=== PATIENT | female | born 1950 | race American Indian/Alaskan Native ===

== ENCOUNTER 2017-12-30 16:42 | Inpatient (IN) | payer MEDICARE ==
[~2017-12-30 16:42] MED LIST: VANCOMYCIN 750 MG in NACL 0.9% 250ML 250 ML IV SCH
[2017-12-30 17:58] LABS: BUN/Creatinine Ratio 17; Blood Urea Nitrogen 15 mg/dL (7-17); Calcium 10.1 mg/dL (8.4-10.2); Hemolysis Index 2
[2017-12-30 18:23] LABS: Hematocrit 43.4 % (30.3-42.9); Hemoglobin 14.5 gm/dl (10.1-14.3); Mean Corpuscular HGB Conc 33 % (30-34); Mean Corpuscular Hemoglobin 31 pg (28-32); Mean Corpuscular Volume 92 fl (79-97); Platelet Count 313 K/mm3 (140-440); Red Blood Count 4.75 M/mm3 (3.65-5.03); Red Cell Distribution Width 13.4 % (13.2-15.2)
--- NOTE | 2017-12-30 19:03 | Emergency Department Report ---
ED Eye Problem HPI - General Chief complaint: Eye Problems Stated complaint: DOCTOR REFERRAL/EVALUATE FOR ORBITAL CELLULITIS Time Seen by Provider: 12/30/17 19:03 Source: patient Mode of arrival: Ambulatory Limitations: No Limitations - History of Present Illness Initial comments: Patient says she had left eye cataract removed last week. She started having left eye swelling and redness 2 days ago. Patient saw her chicken and fish butcher this afternoon to go to the emergency room to be evaluated for left orbital cellulitis. chief complaint: eye pain, eye redness -: Gradual, days(s) (2) Onset Description: gradual Location: left eye Place: home If Injury: other (Left eye cataract surgery last week.) Eye Symptoms: redness, pain, discharge, decreased vision, photophobia Severity: severe Severity scale (0 -10): 8 If Pain, Quality: sharp, burning Consistency: constant Context: recent eye procedure Associated Symptoms: none Treatments Prior to Arrival: none - Related Data Allergies Allergy/AdvReac Type Severity Reaction Status Date / Time No Known Allergies Allergy Unverified 09/14/15 13:41 ED Review of Systems ROS: Stated complaint: DOCTOR REFERRAL/EVALUATE FOR ORBITAL CELLULITIS Other details as noted in HPI Comment: All other systems reviewed and negative Constitutional: denies: chills, fever Eyes: eye pain, eye discharge, vision change ENT: denies: ear pain, dental pain, hearing loss Respiratory: denies: cough, shortness of breath Cardiovascular: denies: chest pain, palpitations Endocrine: no symptoms reported Gastrointestinal: denies: abdominal pain, nausea, vomiting, diarrhea Genitourinary: denies: urgency, dysuria, frequency Musculoskeletal: denies: back pain, joint swelling, arthralgia Skin: denies: rash, change in color Neurological: denies: headache, weakness, numbness, paresthesias Psychiatric: denies: anxiety, depression Hematological/Lymphatic: denies: easy bleeding, easy bruising ED Past Medical Hx - Past Medical History Hx Hypertension: Yes Hx Diabetes: Yes - Surgical History Hx Open Heart Surgery: Yes (1998) - Social History Smoking Status: Never Smoker Substance Use Type: None ED Physical Exam - General Limitations: No Limitations General appearance: alert, in no apparent distress - Head Head exam: Present: atraumatic, normocephalic, normal inspection - Eye Eye exam: Present: conjunctival injection, periorbital swelling, periorbital tenderness, other (Chemosis of the left eye.) Pupils: Present: unequal - ENT ENT exam: Present: normal exam, normal orophraynx, mucous membranes moist - Neck Neck exam: Present: normal inspection, full ROM. Absent: tenderness - Respiratory Respiratory exam: Present: normal lung sounds bilaterally. Absent: respiratory distress, wheezes, rhonchi - Cardiovascular Cardiovascular Exam: Present: regular rate, normal rhythm, normal heart sounds - GI/Abdominal GI/Abdominal exam: Present: soft, normal bowel sounds. Absent: distended, tenderness, guarding, rebound - Extremities Exam Extremities exam: Present: normal inspection, full ROM, normal capillary refill - Back Exam Back exam: Present: normal inspection, full ROM - Neurological Exam Neurological exam: Present: alert, oriented X3, CN II-XII intact - Psychiatric Psychiatric exam: Present: normal affect, normal mood - Skin Skin exam: Present: warm, dry, intact, normal color. Absent: rash ED Course Vital Signs 12/30/17 12/30/17 12/30/17 17:07 19:40 19:50 Temperature 97.8 F 98.1 F Pulse Rate 95 H 86 Respiratory 18 16 16 Rate Blood Pressure 150/77 Blood Pressure 133/72 [Left] O2 Sat by Pulse 98 100 Oximetry 12/30/17 12/30/17 20:20 21:11 Temperature Pulse Rate Respiratory 16 16 Rate Blood Pressure Blood Pressure [Left] O2 Sat by Pulse 98 Oximetry - Reevaluation(s) Reevaluation #1: 12/30/17 22:24 Patient care was discussed with the hospitalist transportation planning technician Dr Deluca. He will admit patient to the hospital for further evaluation and management. ED Medical Decision Making - Lab Data Result diagrams: 12/30/17 17:23 12/30/17 17:23 - Radiology Data Radiology results: report reviewed, image reviewed - Medical Decision Making Left Orbital Cellulitis. Critical care attestation.: If time is entered above; I have spent that time in minutes in the direct care of this critically ill patient, excluding procedure time. ED Disposition Clinical Impression: Orbital cellulitis, left Disposition: DC-09 OP ADMIT IP TO THIS HOSP Is pt being admited?: Yes Does the pt Need Aspirin: No Condition: Stable
[2017-12-30] MEDS ORDERED: MORPHINE IV ONE (19:32)
[2017-12-30] MEDS ORDERED: NACL 0.9% 1000 ML 1,000 ML IV ONE ×2 (19:33)
[2017-12-30] MEDS ORDERED: ZOFRAN IV ONE (19:33)
[2017-12-30 19:56] LABS: Alanine Aminotransferase 13 units/L (7-56); Albumin 4.2 g/dL (3.9-5)
[2017-12-30 19:58] LABS: Bilirubin,Direct < 0.2 mg/dL (0-0.2)
[2017-12-30 19:58] LABS: INR 0.93 (0.87-1.13)
[2017-12-30 19:59] LABS: Partial Thromboplastin Time 33.2 Sec. (24.2-36.6)
[2017-12-30] MEDS ORDERED: UNASYN/NS 3 GM/100 ML 3 GM/100 ML BAG IV SCH (20:00)
[2017-12-30] MEDS ORDERED: VANCOMYCIN/NS 1 GM/250 ML 1 GM/250 ML BAG IV SCH (20:00)
[2017-12-30] MEDS ORDERED: VANCOMYCIN PHARMACY TO DOSE IV SCH (20:00)
--- NOTE | 2017-12-30 21:49 | Cat Scan Report ---
FINAL REPORT PROCEDURE: CT ORBIT/EAR/FOSSA W CON TECHNIQUE: Computerized axial tomography of the orbits was performed following the IV injection of iodinated nonionic contrast. HISTORY: Left eye cellulitis COMPARISON: No prior studies are available for comparison. FINDINGS: There is diffuse thickening of the bowie of left eyeball associated with mild degree adjacent fat induration. It is involving both the anterior and posterior portions of the eyeball. Left lens is not visualized. The choroidal air appears to be slightly displaced internally especially in the anterior portion of the globe. Optic nerve and extraocular muscles are unremarkable. Right eyeball and right retrobulbar structures are within normal limits. A focal fluid collection is not identified. Bilateral lacrimal glands demonstrate normal enhancement. Bilateral paranasal sinuses are clear. IMPRESSION: Findings are most consistent with diffuse left scleritis involving anterior and posterior portions. Left lens is not visualized most likely secondary to prior surgery.
[2017-12-30] MEDS ORDERED: UNASYN/NS 3 GM/100 ML 3 GM/100 ML BAG IV ONE (22:00)
[2017-12-30] MEDS: VANCOMYCIN 750 MG in NACL 0.9% 250ML 250 ML IV SCH (22:20)
[2017-12-30] MEDS ORDERED: ZOFRAN IV PRN (22:39)
[2017-12-30] MEDS ORDERED: TYLENOL PO PRN (22:40)
[2017-12-30] MEDS ORDERED: D50W (25GM) Syringe IV PRN (22:42)
[2017-12-30] MEDS ORDERED: K-DUR PO ONE (22:45)
[2017-12-30] MEDS ORDERED: TYLENOL ONE (23:07)
[2017-12-31] MEDS: KCL 10MEQ/100ML 10 MEQ/100 ML BAG IV SCH ×2 (00:33→01:25)
[2017-12-31] MEDS: MORPHINE IV PRN ×3 (06:00→19:45)
[2017-12-31] MEDS: UNASYN/NS 3 GM/100 ML 3 GM/100 ML BAG IV SCH ×2 (06:05→12:04)
--- NOTE | 2017-12-31 06:46 | History and Physical Report ---
CHIEF COMPLAINT: Pain and swelling in the left eye. HISTORY OF PRESENT ILLNESS: The patient is a 67-year-old female who had cataract surgery done to the left eye in early 11/2017 and then started having pain and swelling in the left eye about 2 days ago with some redness. The patient saw her manager leasing that did the surgery, who is attached with the [facility] and the manager leasing told her that she needs to go to the Emergency Room to be evaluated for orbital cellulitis. There is no history of fever, no history of chills. The patient said that in the morning of yesterday before she saw the manager leasing, the left eye was sticking together. There is no history of nausea or vomiting. The patient described the pain in the eye as sharp and burning and then presented to the Emergency Room. PAST MEDICAL HISTORY: Pertinent for hypertension and diabetes mellitus. Also, the patient has past history of coronary artery disease. PAST SURGICAL HISTORY: Significant for open heart surgery in 1998 and recent cataract surgery in the left. FAMILY HISTORY: Noncontributory. SOCIAL HISTORY: The patient does not smoke, does not drink alcohol and does not use illicit drugs. MEDICATIONS: The patient's home medications are not known. ALLERGIES: There are no known drug allergies. REVIEW OF SYSTEMS: CONSTITUTIONAL: There is no fever, no chills and no diaphoresis. ENT: No headache. ____ pain, swelling and redness in the left eye. CARDIOVASCULAR: There is no chest pain or orthopnea. RESPIRATORY: There is no shortness of breath or cough. GASTROINTESTINAL: There is no nausea, no vomiting, no abdominal pain, diarrhea or constipation. NEUROLOGICAL: There is no numbness, no dizziness, no altered mental status. MUSCULOSKELETAL: There is no joint pain or swelling. DERMATOLOGIC: There is no skin rash or itching. GENITOURINARY: There is no dysuria, hematuria or flank pain. Rest of system review is normal. PHYSICAL EXAMINATION: GENERAL: At this time of exam, the patient was found to be alert and oriented x 3 and in mild distress due to pain in the left eye. VITAL SIGNS: Show temperature of 98 degrees Fahrenheit, pulse of 86, respirations 16, blood pressure 144/70 and O2 sat of 96% on room air. HEENT: Showed left eye to be swollen and red. ____. NECK: Supple with no JVD or carotid bruit. CARDIOVASCULAR: Showed normal first and second heart sounds with no gallops or murmurs. RESPIRATORY: Showed good air entry on both sides of the lungs with no abnormal breath sounds. GASTROINTESTINAL: Show abdomen to be full, soft and nontender with no organomegaly or rigidity. NEUROLOGIC: Shows no focal deficits. MUSCULOSKELETAL: Show no joint swelling or tenderness. DERMATOLOGICAL: Show no skin rash. GENITOURINARY: Showing no costovertebral angle tenderness. PERTINENT LABORATORY AND IMAGING STUDIES: The patient has CBC done with normal white count, high hemoglobin of 10.5 and high hematocrit of 43.4, which was normal. The patient's coagulation studies were ____. Chemistry showed low potassium level of 3.0, normal sodium with low chloride of 91.9. The patient's renal function test was unremarkable. Lactic acid level was high with a value of 6.2. Rest of chemistry was unremarkable. IMAGING STUDIES: The patient had CT of the orbits done, which shows findings that are most consistent with diffuse left scleritis involving the anterior and posterior portions. Also, the radiologist said that the left lens is not visualized and that is most likely secondary to prior surgery. DIAGNOSES: 1. Left orbital cellulitis. 2. Hypokalemia. PLAN: The patient will be admitted to medical floor and will continue IV antibiotics,the patient will be on IV Unasyn 3 g q. 6 hours, having had the first dose in the Emergency Room. Also, the patient will continue IV vancomycin started in the Emergency Room with pharmacy to adjust the dose. The patient will be on IV morphine 2 mg every 3 hours as needed for pain and IV Zofran 4 mg every 6 hours for nausea and vomiting and have one-time dose of potassium chloride 40 mEq by mouth. The patient will be on Tylenol 650 mg by mouth every 4 hours for fever and headache and DVT prophylaxis with heparin 5000 units subcutaneous q. 12 hours. The patient will also be on IV Zofran 4 mg every 6 hours for nausea and vomiting and will be on Accu-Chek a.c. and at bedtime, followed by low-dose sliding scale using regular insulin. The patient's home medications will be reconciled and applied when they are known. The patient's diet will be consistent with carbohydrate 2 g sodium diet. JOB# [id number] O[facility]/SHABBIR ZUNIGA
[2017-12-31] MEDS: VANCOMYCIN 750 MG in NACL 0.9% 250ML 250 ML IV SCH ×2 (08:06→22:43)
[2017-12-31] MEDS: HumuLIN R SUB-Q SCH ×4 (08:28→22:59)
[2017-12-31 08:34] LABS: BUN/Creatinine Ratio 15; Blood Urea Nitrogen 9 mg/dL (7-17); Calcium 8.9 mg/dL (8.4-10.2); Hemolysis Index 12
[2017-12-31] MEDS: HEPARIN SUB-Q SCH ×2 (09:16→22:50)
--- NOTE | 2017-12-31 12:59 | Progress Note ---
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 She had surgery on December [address] Jimenez Hutchinson. She was seen by him yesterday and referred for further management. Vision no history of diabetes mellitus, hypertension, history of cataract surgery. orbital cellulitis - CT of the face was done; showed diffuse left scleritis involving anterior and posterior portions, left lens is not visualized most likely secondary to prior surgery - Patient is on IV vancomycin and Unasyn - ID and ophthalmology consulted, I have called Dr. Jacobs's office and talk with his prosthetics assistant and said he will get back to me Lactic acidosis - Patient was given IV fluids and resolved Diabetes mellitus, well controlled - ADA diet, SSI Hypertension - BP is well controlled DVT prophylaxis - Heparin Disposition - Continue inpatient care History Interval history: Patient was seen and evaluated this morning, patient was complaining severe pain on the left eye. Hospitalist Physical - Physical exam Narrative exam: Not in cardiopulmonary distress. The patient appeared well nourished and normally developed. Discharge from the left eye, left eye swollen, difficult to open, inflamed. Vital signs as documented. Head exam is unremarkable. No scleral icterus . Neck is without jugular venous distension, thyromegaly, or carotid bruits. Lungs are clear to auscultation. Cardiac exam reveals regular rate and Rhythm. First and second heart sounds normal. No murmurs, rubs or gallops. Abdominal exam reveals normal bowel sounds, no masses, no organomegaly and no aortic enlargement. Extremities are nonedematous and both femoral and pedal pulses are normal. 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 No focal weakness. - Constitutional Vitals: Temp Pulse Resp BP Pulse Ox 99.1 F 76 16 142/75 94 12/31/17 07:31 12/31/17 10:00 12/31/17 10:00 12/31/17 07:31 12/31/17 10:00 Results - Labs CBC & Chem 7: 12/30/17 17:23 12/31/17 07:22 Labs: Laboratory Last Values WBC 8.1 K/mm3 (4.5-11.0) 12/30/17 17:23 RBC 4.75 M/mm3 (3.65-5.03) 12/30/17 17:23 Hgb 14.5 gm/dl (10.1-14.3) H 12/30/17 17:23 Hct 43.4 % (30.3-42.9) H 12/30/17 17:23 MCV 92 fl (79-97) 12/30/17 17:23 MCH 31 pg (28-32) 12/30/17 17:23 MCHC 33 % (30-34) 12/30/17 17:23 RDW 13.4 % (13.2-15.2) 12/30/17 17:23 Plt Count 313 K/mm3 (140-440) 12/30/17 17:23 PT 12.9 Sec. (12.2-14.9) 12/30/17 19:23 INR 0.93 (0.87-1.13) 12/30/17 19:23 APTT 33.2 Sec. (24.2-36.6) 12/30/17 19:23 Sodium 143 mmol/L (137-145) 12/31/17 07:22 Potassium 4.0 mmol/L (3.6-5.0) D 12/31/17 07:22 Chloride 101.9 mmol/L (98-107) 12/31/17 07:22 Carbon Dioxide 27 mmol/L (22-30) 12/31/17 07:22 Anion Gap 18 mmol/L 12/31/17 07:22 BUN 9 mg/dL (7-17) 12/31/17 07:22 Creatinine 0.6 mg/dL (0.7-1.2) L 12/31/17 07:22 Estimated GFR > 60 ml/min 12/31/17 07:22 BUN/Creatinine Ratio 15 % 12/31/17 07:22 Glucose 113 mg/dL (65-100) H 12/31/17 07:22 POC Glucose 147 (70-105) H 12/31/17 11:22 Lactic Acid 1.40 mmol/L (0.7-2.0) 12/31/17 10:01 Calcium 8.9 mg/dL (8.4-10.2) 12/31/17 07:22 Total Bilirubin 0.80 mg/dL (0.1-1.2) 12/30/17 19:08 Direct Bilirubin < 0.2 mg/dL (0-0.2) 12/30/17 19:08 Indirect Bilirubin 0.6 mg/dL 12/30/17 19:08 AST 19 units/L (5-40) 12/30/17 19:08 ALT 13 units/L (7-56) 12/30/17 19:08 Alkaline Phosphatase 123 units/L (35-129) 12/30/17 19:08 Total Protein 9.9 g/dL (6.3-8.2) H 12/30/17 19:08 Albumin 4.2 g/dL (3.9-5) 12/30/17 19:08 Albumin/Globulin Ratio 0.7 % 12/30/17 19:08
--- NOTE | 2017-12-31 13:56 | Consultation ---
History of Present Illness - Reason for Consult Consult date: 12/31/17 orbital cellulitis Requesting physician: BALJIT FLORENCE - History of Present Illness 67 y/o female with history of cataracts, HTN, DM; admitted on 12/30/17 sent from her title abstractor office after she presented for erythema, pain and swelling on the left eye. She had left eye cataract surgery on December [id number] by Dr. Jimenez Hutchinson. Denies fever, chills, eye injury. Denies itching, or visual changes. Glucose at home in the 130s. In the ED, temp 97.8, HR 95, R 18, BP 150/77. WBC 8.1. Hg 14.5. Plat 313. Lactate 6.2. Creat 0.9. CT orbit showed diffuse left scleritis involving anterior and posterior portions of the left eye. No abscess seen. Micro: Blood cx 12/30 ngtd Abx: IV vancomycin and Unasyn Past History Past Medical History: other (cataracts) Past Surgical History: No surgical history Social history: no significant social history Medications and Allergies Allergies Allergy/AdvReac Type Severity Reaction Status Date / Time No Known Allergies Allergy Unverified 09/14/15 13:41 Home Medications Medication Instructions Recorded Confirmed Last Taken Type Amlodipine Besylate [Norvasc] 5 mg PO DAILY 12/31/17 12/31/17 Unknown History Aspirin [Aspirin EC] 81 mg PO DAILY 12/31/17 12/31/17 Unknown History Atorvastatin Calcium [Lipitor] 20 mg PO HS 12/31/17 12/31/17 Unknown History Losartan [Cozaar] 25 mg PO QDAY 12/31/17 12/31/17 Unknown History Omeprazole 20 mg PO DAILY 12/31/17 12/31/17 Unknown History metFORMIN [Glucophage] 850 mg PO BID 12/31/17 12/31/17 Unknown History Active Meds: Active Medications Acetaminophen (Tylenol) 650 mg PO Q4H PRN PRN Reason: For Pain/Fever/Headache Last Admin: 12/30/17 23:15 Dose: 650 mg Dextrose (D50w (25gm) Syringe) 50 ml IV PRN PRN PRN Reason: Hypoglycemia Heparin Sodium (Porcine) (Heparin) 5,000 unit SUB-Q Q12HR PAUL Last Admin: 12/31/17 09:16 Dose: 5,000 unit Vancomycin HCl 750 mg/ Sodium (Chloride) 257.5 mls @ 166.667 mls/hr IV Q12H PAUL Last Admin: 12/31/17 08:06 Dose: 166.667 mls/hr Ampicillin Sodium/Sulbactam Sodium (Unasyn/Ns 3 Gm/100 Ml) 3 gm in 100 mls @ 200 mls/hr IV Q6HR PAUL; Protocol Last Admin: 12/31/17 12:04 Dose: 200 mls/hr Insulin Human Regular (Humulin R) 0 units SUB-Q AC PAUL; Protocol Last Admin: 12/31/17 11:31 Dose: Not Given Insulin Human Regular (Humulin R) 0 units SUB-Q QHS PAUL; Protocol Methylprednisolone Sodium Succinate (Solu-Medrol) 40 mg IV Q12HR PAUL Morphine Sulfate (Morphine) 2 mg IV Q3H PRN PRN Reason: Pain, Moderate (4-6) Last Admin: 12/31/17 10:35 Dose: 2 mg Ondansetron HCl (Zofran) 4 mg IV Q6H PRN PRN Reason: Nausea And Vomiting Prednisolone Acetate (Pred Forte 1%) 1 drops OU QID PAUL Vancomycin HCl (Vancomycin Pharmacy To Dose) 1 each IV PKCONSULT PAUL Review of Systems All systems: negative (as per HPI) Physical Examination - Physical Exam Narrative exam: Alert in NAD [place] AT JANELL, left sclerae injected with corneal edema and overall left eye edema , clear secretion Neck no JVD no LN Lungs CTA tyra CV rrr Abd soft NT Ext no edema Skin no rash - Constitutional Vitals: Vital Signs Temp Pulse Resp BP Pulse Ox 99.1 F 76 16 142/75 94 12/31/17 07:31 12/31/17 10:00 12/31/17 10:00 12/31/17 07:31 12/31/17 10:00 Temperature -Last 24 Hours Temperature 99.1 F Temperature 97.8 F Temperature 98 F Temperature 98.1 F Temperature 97.8 F Results - Labs CBC & Chem 7: 12/30/17 17:23 12/31/17 07:22 Labs: Abnormal lab results 12/30/17 12/30/17 12/30/17 Range/Units 17:23 17:23 17:23 Hgb 14.5 H (10.1-14.3) gm/dl Hct 43.4 H (30.3-42.9) % Potassium 3.0 L (3.6-5.0) mmol/L Chloride 91.9 L (98-107) mmol/L Creatinine (0.7-1.2) mg/dL Glucose 173 H (65-100) mg/dL POC Glucose (70-105) Lactic Acid 6.10 H* (0.7-2.0) mmol/L Total Protein (6.3-8.2) g/dL 12/30/17 12/30/17 12/30/17 Range/Units 18:44 19:08 23:56 Hgb (10.1-14.3) gm/dl Hct (30.3-42.9) % Potassium (3.6-5.0) mmol/L Chloride (98-107) mmol/L Creatinine (0.7-1.2) mg/dL Glucose (65-100) mg/dL POC Glucose (70-105) Lactic Acid 6.20 H* 3.80 H* (0.7-2.0) mmol/L Total Protein 9.9 H (6.3-8.2) g/dL 12/31/17 12/31/17 Range/Units 07:22 11:22 Hgb (10.1-14.3) gm/dl Hct (30.3-42.9) % Potassium (3.6-5.0) mmol/L Chloride (98-107) mmol/L Creatinine 0.6 L (0.7-1.2) mg/dL Glucose 113 H (65-100) mg/dL POC Glucose 147 H (70-105) Lactic Acid (0.7-2.0) mmol/L Total Protein (6.3-8.2) g/dL Assessment and Plan Assessment: 1) Presumed Left orbital cellulitis? after cataract surgery involving ?the fat and ocular muscles. Likely due to Staph vs Strep, less likely Pseudomonas / fungi -left eye cataract surgery on December 09, [address] Jimenez Hutchinson[address] -CT orbit showed diffuse left scleritis involving anterior and posterior portions of the left eye. No abscess seen. 2) DM: controlled Plan: -Ophthal needs to review CT -continue IV vancomycin -stop unasyn -add cefepime I am rounding on 01/02 Summer Mcfarland MD
[2017-12-31] MEDS ORDERED: PRED FORTE 1% OU SCH (14:00)
[2017-12-31] MEDS ORDERED: PRED FORTE 1% OS SCH (14:39)
[2017-12-31] MEDS: MAXIPIME 2 GM in NACL 0.9% 20 ML IV SCH ×2 (15:16→22:51)
[2017-12-31] MEDS: PRED FORTE 1% OS SCH ×2 (17:59→22:51)
[2017-12-31] MEDS ORDERED: HumuLIN R SUB-Q SCH (22:00)
[2018-01-01] MEDS: MAXIPIME 2 GM in NACL 0.9% 20 ML IV SCH (07:24)
[2018-01-01 07:25] LABS: Basophils % (Auto) 0.3 % (0.0-1.8); Hematocrit 37.9 % (30.3-42.9); Hemoglobin 12.8 gm/dl (10.1-14.3); Lymphocytes # (Auto) 0.7 K/mm3 (1.2-5.4); Lymphocytes % (Auto) 14.4 % (13.4-35.0); Mean Corpuscular HGB Conc 34 % (30-34); Mean Corpuscular Hemoglobin 31 pg (28-32); Mean Corpuscular Volume 91 fl (79-97); Monocytes # (Auto) 0.2 K/mm3 (0.0-0.8); Monocytes % (Auto) 4.3 % (0.0-7.3); Platelet Count 227 K/mm3 (140-440); Red Blood Count 4.17 M/mm3 (3.65-5.03); Red Cell Distribution Width 13.6 % (13.2-15.2)
[2018-01-01] MEDS: HumuLIN R SUB-Q SCH (07:29)
[2018-01-01 07:52] LABS: BUN/Creatinine Ratio 22; Blood Urea Nitrogen 13 mg/dL (7-17); Calcium 9.4 mg/dL (8.4-10.2); Hemolysis Index 2
[2018-01-01] MEDS: VANCOMYCIN 750 MG in NACL 0.9% 250ML 250 ML IV SCH (07:59)
[2018-01-01 08:22] VITALS: BP 149/61
[2018-01-01] MEDS: HEPARIN SUB-Q SCH (09:32)
[2018-01-01] MEDS: PRED FORTE 1% OS SCH (09:33)
--- NOTE | 2018-01-01 10:57 | Discharge Summary ---
Providers - Providers Date of Admission: 12/30/17 22:17 Attending physician: BALJIT FLORENCE MD 12/31/17 08:31 Consult to Physician [CONS] Routine Comment: spoke with dr. 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 Left lens is not visualized most likely secondary to prior surgery. Hospital course: 67 year old -[place] female was sent from kosher inspector office after she presented for pain and swelling on the left eye. She had surgery on December [address] Linda Rogers. She was seen by him yesterday and referred for further management. Patient has history of diabetes mellitus, hypertension, history of cataract surgery. orbital cellulitis - CT of the face was done; showed diffuse left scleritis involving anterior and posterior portions, left lens is not visualized most likely secondary to prior surgery - Patient was treated IV vancomycin, Unasyn, topical and systemic steroids - ID and ophthalmology consulted, I have called Dr. Jacobs and he came and evaluated the patient agreed with the mangement plan - patient showed marked improvement Lactic acidosis - resolved with IV fluids Diabetes mellitus, well controlled - ADA diet, SSI Hypertension - BP is well controlled patient's left eye swelling subsided. Patient discharged with PO antibiotic, topical and systemic steroids. Patient was hemodynamically stable. Patient will see Dr Jacobs next day. I have also discussed with the patient to see casting repairer for scleritis. we don't have casting repairer [facility]. Disposition: DC-01 TO HOME OR SELFCARE Time spent for discharge: 31 minutes - Discharge Diagnoses (1) Orbital cellulitis, left Status: Acute Core Measure Documentation - Palliative Care Palliative Care/ Comfort Measures: Not Applicable - Core Measures Any of the following diagnoses?: none Exam - Physical Exam Narrative exam: Not in cardiopulmonary distress. The patient appeared well nourished and normally developed. No left eye discharge, patient can open her eye, swelling improved markedly. Vital signs as documented. Head exam is unremarkable. No scleral icterus . Neck is without jugular venous distension, thyromegaly, or carotid bruits. Lungs are clear to auscultation. Cardiac exam reveals regular rate and Rhythm. First and second heart sounds normal. No murmurs, rubs or gallops. Abdominal exam reveals normal bowel sounds, no masses, no organomegaly and no aortic enlargement. Extremities are nonedematous and both femoral and pedal pulses are normal. 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 No focal weakness. - Constitutional Vitals: Temp Pulse Resp BP Pulse Ox 98.6 F 55 L 16 149/61 93 01/01/18 07:18 01/01/18 07:18 01/01/18 07:18 01/01/18 07:18 01/01/18 07:18 Plan Activity: no restrictions Weight Bearing Status: Full Weight Bearing Diet: diabetic Additional Instructions: follow at [facility] [address] in 1-2 weeks Follow up with: PRIMARY CARE, [Primary Care Provider] - 3-5 Days LINDA ROGERS MD [Staff Physician] - 48 Hours Prescriptions: Clindamycin [Clindamycin CAP] 600 mg PO TID #42 capsule prednisoLONE ACETATE 1% [Pred Forte 1%] 1 drops OS QID #2 bottle Prednisone [predniSONE 10 mg (6-Day Pack, 21 Tabs)] 10 mg PO .TAPER #1 tab.[id number]
== END 2018-01-01 12:02 | disposition home or self-care (01) | DRG 121 ==
LOC: ED 16:42 → 2B-ACE 22:17
PROVIDERS: ADMIT Internal Medicine; ATTEND Internal Medicine
DX: H05.012 Cellulitis of left orbit (principal); E87.2 Acidosis; E11.9 Type 2 diabetes mellitus without complications; H15.092 Other scleritis, left eye; I10 Essential (primary) hypertension; I25.10 Atherosclerotic heart disease of native coronary artery without angina pectoris; E87.6 Hypokalemia; Z98.42 Cataract extraction status, left eye; Z95.1 Presence of aortocoronary bypass graft; Z79.82 Long term (current) use of aspirin; Z79.899 Other long term (current) drug therapy
CPT/HCPCS: 36415; 70481; 80048; 80074; 82140; 82962; 85025; 85027; 85610; 85730; 86021; 87040; 96374; 96375; 99285; J0295; J0692; J1644; J1815; J2270; J2405; J2920; J3370; J3480; J7030; J7050; Q9967

== ENCOUNTER 2022-03-27 10:16 | Emergency (ER) | payer MEDICARE ==
[2022-03-27] MEDS ORDERED: ONDANSETRON 4 MG/2 ML INJ IV ONE (11:41)
[2022-03-27] MEDS ORDERED: SODIUM CHLORIDE 0.9% 1000 ML 1,000 ML IV ONE (11:41)
--- NOTE | 2022-03-27 12:08 | Emergency Department Report ---
ED N/V/D HPI - General Chief complaint: Nausea/Vomiting/Diarrhea Stated complaint: NASEA VOMITING Time Seen by Provider: 03/27/22 11:39 Source: patient, EMS Mode of arrival: Stretcher Limitations: No Limitations - History of Present Illness Initial comments: Patient is a 71-year-old female presenting to ED with complaint of nausea vomiting beginning this morning. States she has been unable to keep anything down since this morning. She denies any abdominal pain, chest pain or shortness of breath. No fever or chills. - Related Data Home Medications Medication Instructions Recorded Confirmed Last Taken Amlodipine Besylate [Norvasc] 5 mg PO DAILY 12/31/17 08/19/21 Unknown Aspirin [Aspirin EC] 81 mg PO DAILY 12/31/17 08/19/21 Unknown Atorvastatin Calcium [Lipitor] 20 mg PO HS 12/31/17 08/19/21 Unknown Losartan [Cozaar] 25 mg PO QDAY 12/31/17 08/19/21 Unknown Previous Rx's Medication Instructions Recorded Last Taken Type Aspirin [Aspirin BABY CHEW TAB] 81 mg PO QDAY tab.chew 08/22/21 Unknown Rx AtorvaSTATin [Lipitor] 80 mg PO QHS tablet 08/22/21 Unknown Rx Clopidogrel [Plavix] 75 mg PO QDAY tablet 08/22/21 Unknown Rx Ezetimibe [Zetia] 10 mg PO QDAY tablet 08/22/21 Unknown Rx Metoprolol [Lopressor TAB] 25 mg PO BID tablet 08/22/21 Unknown Rx Pantoprazole [Protonix] 40 mg PO BID 30 Days #60 tablet 08/22/21 Unknown Rx Allergies Allergy/AdvReac Type Severity Reaction Status Date / Time No Known Allergies Allergy Verified 03/27/22 10:27 ED Review of Systems ROS: Stated complaint: NASEA VOMITING Other details as noted in HPI Constitutional: denies: chills, fever Respiratory: denies: cough, shortness of breath, wheezing Cardiovascular: denies: chest pain, palpitations Gastrointestinal: nausea, vomiting. denies: abdominal pain Musculoskeletal: denies: back pain, joint swelling, arthralgia Skin: denies: rash, lesions Neurological: denies: headache, weakness, paresthesias Psychiatric: denies: anxiety, depression ED Past Medical Hx - Past Medical History Hx Hypertension: Yes Hx Heart Attack/AMI: Yes Hx Diabetes: Yes - Surgical History Hx Coronary Stent: Yes Hx Open Heart Surgery: Yes (1998) - Social History Smoking Status: Unknown if ever smoked - Medications Home Medications: Home Medications Medication Instructions Recorded Confirmed Last Taken Type Amlodipine Besylate [Norvasc] 5 mg PO DAILY 12/31/17 08/19/21 Unknown History Aspirin [Aspirin EC] 81 mg PO DAILY 12/31/17 08/19/21 Unknown History Atorvastatin Calcium [Lipitor] 20 mg PO HS 12/31/17 08/19/21 Unknown History Losartan [Cozaar] 25 mg PO QDAY 12/31/17 08/19/21 Unknown History Aspirin [Aspirin BABY CHEW TAB] 81 mg PO QDAY tab.chew 08/22/21 Unknown Rx AtorvaSTATin [Lipitor] 80 mg PO QHS tablet 08/22/21 Unknown Rx Clopidogrel [Plavix] 75 mg PO QDAY tablet 08/22/21 Unknown Rx Ezetimibe [Zetia] 10 mg PO QDAY tablet 08/22/21 Unknown Rx Metoprolol [Lopressor TAB] 25 mg PO BID tablet 08/22/21 Unknown Rx Pantoprazole [Protonix] 40 mg PO BID 30 Days #60 tablet 08/22/21 Unknown Rx ED Physical Exam - General Limitations: No Limitations General appearance: alert, in no apparent distress - Head Head exam: Present: atraumatic, normocephalic - Respiratory Respiratory exam: Present: normal lung sounds bilaterally. Absent: respiratory distress - Cardiovascular Cardiovascular Exam: Present: regular rate, normal rhythm, normal heart sounds - GI/Abdominal GI/Abdominal exam: Present: soft. Absent: distended, tenderness - Rectal Rectal exam: Present: deferred - Neurological Exam Neurological exam: Present: alert, oriented X3 - Psychiatric Psychiatric exam: Present: normal affect, normal mood - Skin Skin exam: Present: warm, dry, normal color ED Course Vital Signs 03/27/22 10:23 Pulse Rate 53 L Respiratory 16 Rate Blood Pressure 172/75 [Left] O2 Sat by Pulse 96 Oximetry ED Medical Decision Making - Lab Data Result diagrams: 03/27/22 12:12 03/27/22 12:12 - Medical Decision Making Patient given 1 L normal saline bolus along with IV Zofran. Labs grossly unremarkable. On reassessment patient states her symptoms are improving. She is stable for discharge home with return precautions. Critical care attestation.: If time is entered above; I have spent that time in minutes in the direct care of this critically ill patient, excluding procedure time. ED Disposition Clinical Impression: Nausea and vomiting Disposition: 01 HOME / SELF CARE / HOMELESS Is pt being admited?: No Condition: Stable Instructions: Nausea and Vomiting, Adult Referrals: PRIMARY CARE, [Primary Care Provider] - 3-5 Days Time of Disposition: 14:56
[2022-03-27 12:59] LABS: Alanine Aminotransferase 66 units/L (7-56); Albumin 4.4 g/dL (3.9-5); BUN/Creatinine Ratio 16; Blood Urea Nitrogen 16 mg/dL (7-17); Calcium 9.8 mg/dL (8.4-10.2); Hemolysis Index 7
[2022-03-27 13:03] LABS: Basophils % (Auto) 0.3 % (0.0-1.8); Eosinophils % (Auto) 0.3 % (0.0-4.3); Hemoglobin 14.9 gm/dl (10.1-14.3); Lymphocytes # (Auto) 0.9 K/mm3 (1.2-5.4); Lymphocytes % (Auto) 18.6 % (13.4-35.0); Mean Corpuscular HGB Conc 33 % (30-34); Mean Corpuscular Volume 97 fl (79-97); Monocytes # (Auto) 0.3 K/mm3 (0.0-0.8); Monocytes % (Auto) 5.9 % (0.0-7.3); Platelet Count 155 K/mm3 (140-440); Red Blood Count 4.63 M/mm3 (3.65-5.03); Red Cell Distribution Width 14.5 % (13.2-15.2)
[2022-03-27 15:33] VITALS: BP 143/52
--- NOTE | 2022-03-29 13:24 | Electrocardiograph Report ---
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
== END 2022-03-27 15:36 | disposition home or self-care (01) ==
LOC: ED 10:16
DX: R11.2 Nausea with vomiting, unspecified (principal); I10 Essential (primary) hypertension; E11.9 Type 2 diabetes mellitus without complications; Z98.890 Other specified postprocedural states; Z79.899 Other long term (current) drug therapy; Z79.82 Long term (current) use of aspirin
CPT/HCPCS: 36415; 80053; 83690; 84484; 85025; 93005; 96361; 96374; 99284; J2405; J7030